=== PATIENT | male | born 1980 | race Caucasian/White ===

== ENCOUNTER 2020-10-03 18:49 | Emergency (ER) | payer MEDICAID ==
[~2020-10-03] VITALS: Ht 165.1 cm; Wt 99.8 kg
[2020-10-03 19:40] VITALS: BP 130/80
--- NOTE | 2020-10-03 19:56 | NUR ---
PT TAKEN TO BED 1
--- NOTE | 2020-10-03 20:05 | NUR ---
RECEIVED IN BED 1 WITH C/O ABDOMINAL PAIN X 3 HOURS. PAIN RATED 5/10. DENIES URINARY OR BOWEL C/O. ABDOMEN IS LARGE, ROUND AND SOFT. SKIN IS WARM AND DRY. RESPIRATIONS ARE REGULAR AND UNLABORED PMH: NONE NKDA
[2020-10-03] MEDS ORDERED: FAMOTIDINE 20 MG TAB PO ONE (20:45)
[2020-10-03 21:04] LABS: BASOPHILS % (AUTO) 0.4 % (0.0-2.0); EOSINOPHILS # (AUTO) 0.2 K/uL (0-0.4); EOSINOPHILS % (AUTO) 2.2 % (0.0-4.0); HEMATOCRIT 42.7 % (36-52); HEMOGLOBIN 14.8 g/dL (12.0-18.0); LYMPHOCYTES % (AUTO) 30.8 % (20.5-51.1); MEAN CORPUSCULAR HEMOGLOBIN 30 pg (27-31); MEAN CORPUSCULAR HGB CONC 35 g/dL (33-37); MEAN CORPUSCULAR VOLUME 87.7 fL (80-94); MONOCYTES # (AUTO) 1.1 K/uL (0.8-1.0); MONOCYTES % (AUTO) 11.1 % (1.7-9.3); NEUTROPHILS # (AUTO) 5.4 K/uL (1.8-7.7); NEUTROPHILS % (AUTO) 55.5 % (42.2-75.2); PLATELET COUNT (AUTO) 265 K/uL (140-450); RED BLOOD CELL COUNT(AUTO) 4.87 MIL/uL (4.20-6.10); RED CELL DISTRIBUTION WIDTH 12.4 % (11.6-13.7); WHITE BLOOD COUNT (AUTO) 9.8 K/uL (4.8-10.8)
[2020-10-03 21:18] LABS: ALBUMIN 3.4 g/dL (3.4-5.0); ANION GAP 6.5 (8-16); CARBON DIOXIDE 28.5 mmol/L (21-32); TOTAL BILIRUBIN 0.3 mg/dL (0.0-1.0)
[2020-10-03] MEDS ORDERED: OMEP40EC23 PO (21:39)
[2020-10-03 22:09] VITALS: BP 130/80
--- NOTE | 2020-10-03 22:09 | NUR ---
Patient discharged with v/s stable. Written and verbal after care instructions given and explained. Patient alert, oriented and verbalized understanding of instructions. Ambulatory with steady gait. All questions addressed prior to discharge. ID band removed. Patient advised to follow up with PMD. Rx of PRILOSEC given. Patient educated on indication of medication including possible reaction and side effects. Opportunity to ask questions provided and answered.
== END 2020-10-03 22:09 | disposition home or self-care (01) ==
LOC: MED 18:49
DX: K29.70 Gastritis, unspecified, without bleeding (principal); Z79.899 Other long term (current) drug therapy
CPT/HCPCS: 36415; 80053; 83690; 85025; 93005; 99284